=== PATIENT | male | born 1975 | race Two or more races ===

== ENCOUNTER 2022-02-08 00:47 | Emergency (ER) | payer OTHER ==
[~2022-02-08] VITALS: Ht 182.9 cm; Wt 89.1 kg
[2022-02-08] MEDS ORDERED: HYDR-4924 PO (04:40)
[2022-02-08 04:43] VITALS: BP 180/119
[2022-02-08] MEDS ORDERED: LORazepam 0.5 MG TAB PO ONE (04:45)
== END 2022-02-08 05:00 | disposition home or self-care (01) ==
LOC: ER 01:04
DX: F41.9 Anxiety disorder, unspecified (principal); E11.9 Type 2 diabetes mellitus without complications

== ENCOUNTER → 2022-02-09 | Emergency (ER) | payer OTHER ==
[~2022-02-09] VITALS: Ht 182.9 cm; Wt 89.0 kg
[~2022-02-09] MED LIST: HYDR-4924 PO
[2022-02-09 21:39] VITALS: BP 209/141
== END | disposition home or self-care (01) ==
LOC: EDUNIT# 20:50 → EDBD 20:56 → ER 20:59
DX: F41.9 Anxiety disorder, unspecified (principal); Z53.21 Procedure and treatment not carried out due to patient leaving prior to being seen by health care provider